=== PATIENT | male | born 1970 | race Caucasian/White ===

== ENCOUNTER → 2016-03-09 | Outpatient (CLI) | payer BC, OTHER ==
[~2016-03-09] MED LIST: ATOR-22 PO; PRLSR20 PO
[2016-03-09 12:51] LABS: ALB/GLOB RATIO 1.1 (0.9-2); ALKALINE PHOSPHATASE 58 U/L (45-117); ALT/SGPT 49 U/L (12-78); AST/SGOT 29 U/L (15-37); BLOOD UREA NITROGEN 10 mg/dl (7-18); BUN/CREATININE RATIO 9.2 (10-20); CALCIUM 9.8 mg/dl (8.5-10.1); CARBON DIOXIDE 26 mmol/L (21-32); CHLORIDE 101 mmol/L (98-107); GLUCOSE 96 mg/dl (70-99); HDL CHOLESTEROL 62 mg/dl; POTASSIUM 3.8 mmol/L (3.5-5.1); SODIUM 138 mmol/L (136-145)
[2016-03-09 12:58] LABS: CHOLESTEROL 187 mg/dl (0-200); LDL CHOLESTEROL CALCULATED 84 mg/dl; PROSTATE SPECIFIC ANTIGEN 0.699 ng/ml (0.000-4.000); TRIGLYCERIDES 205 mg/dl (0-150); VERY LOW DENSITY LIPOPROT CALC 41 mg/dl
--- NOTE | 2016-03-14 09:54 | CODING QUERY MEDICAL NECESSITY ---
SUPPORTING DIAGNOSIS NEEDED A supporting diagnosis is required for the test/procedure performed on this patient in order for us to be reimbursed by the patient's insurance. Please provide a supporting diagnosis for the following test/procedure listed below next to the test name along with your signature. *If there is no additional diagnosis for this patient that would support the following test/procedure please document that below next to the test/procedure. Test(s)/Procedure(s) that require a supporting diagnosis: * PSA DIAGNOSIS: * DOS: 03/09/16 Provider Signature: Date: Thank you Gerda Chavez Personally Information Management Once completed, please kindly fax back to [phone] For questions please call [phone]
== END | disposition home or self-care (01) ==
LOC: C.LABBFT 07:38
PROVIDERS: ATTEND Neuromusculoskeletal Medicine & OMM
DX: Z00.00 Encounter for general adult medical examination without abnormal findings (principal); Z86.39 Personal history of other endocrine, nutritional and metabolic disease

== ENCOUNTER → 2016-06-14 | Outpatient (CLI) | payer BC ==
[2016-06-14 12:20] LABS: CHOLESTEROL/HDL RATIO 3.8
[2016-06-14 12:31] LABS: BLOOD UREA NITROGEN 14 mg/dl (7-18); BUN/CREATININE RATIO 13.1 (10-20); CARBON DIOXIDE 28 mmol/L (21-32); CHLORIDE 101 mmol/L (98-107); GLUCOSE 104 mg/dl (70-99); MAGNESIUM 2.1 mg/dl (1.8-2.4); POTASSIUM 3.5 mmol/L (3.5-5.1); SODIUM 138 mmol/L (136-145)
== END | disposition home or self-care (01) ==
LOC: C.LABBFT 07:36
PROVIDERS: ATTEND Neuromusculoskeletal Medicine & OMM
DX: E87.6 Hypokalemia (principal)

== ENCOUNTER → 2017-01-09 | Outpatient (CLI) | payer BC ==
--- NOTE | 2017-01-09 15:54 | DIAGNOSTIC IMAGING REPORT ---
CHEST 2 VIEWS ROUTINE CLINICAL HISTORY: Lump of rib. COMPARISON STUDY: Chest radiograph September 23, 2013. FINDINGS: A BB was placed on the skin at site of palpable abnormality. This overlies the anterolateral left 11th rib. No osseous abnormality is the rib is identified by radiography. Lungs are clear. Pulmonary vascularity is normal. Cardiomediastinal silhouette is normal. IMPRESSION: 1. No acute cardiopulmonary findings. 2. No abnormality of the left 11th rib to correspond to the palpable abnormality. Electronically signed by: Jose J Hernandez M.D. 01/09/2017 3:53 PM Dictated Date/Time: 01/09/2017 3:51 PM
== END | disposition home or self-care (01) ==
LOC: C.RAD1850 15:32
PROVIDERS: ATTEND Neuromusculoskeletal Medicine & OMM
DX: M89.9 Disorder of bone, unspecified (principal)

== ENCOUNTER → 2017-02-03 | Outpatient (CLI) | payer BC ==
--- NOTE | 2017-02-03 11:54 | DIAGNOSTIC IMAGING REPORT ---
CHEST LIMITED (US) CLINICAL HISTORY: LUMP OF RIB, RIB PAIN ON LEFT SIDE COMPARISON STUDY: Chest x-ray 01/09/2017. FINDINGS: The patient describes a questioned palpable abnormality and pain within the left rib 10 and 11 rib costochondral junctions. No sonographic abnormality identified location. No fluid collections or masses. IMPRESSION: No sonographic abnormality identified in the region of the left 10th or 11th rib costochondral junctions. Electronically signed by: Josh Dominique M.D. 02/03/2017 11:53 AM Dictated Date/Time: 02/03/2017 11:51 AM
== END | disposition home or self-care (01) ==
LOC: C.ULTR 11:21
PROVIDERS: ATTEND Neuromusculoskeletal Medicine & OMM
DX: M89.9 Disorder of bone, unspecified (principal); R07.81 Pleurodynia

== ENCOUNTER 2024-02-05 20:09 | Inpatient (IN) ==
[2024-02-05 21:12] LABS: Basophils # (auto) 0.03 K/uL (0.00-0.20); Basophils % (auto) 0.3 %; Eosinophils # (auto) 0.02 K/uL (0.00-0.50); Eosinophils % (auto) 0.2 %; Hematocrit (blood only) 40.8 % (42.0-52.0); Immature Granulocytes # (auto) 0.02 K/uL (0.01-0.20); Immature Granulocytes % (auto) 0.2 %; Lymphocytes % (auto) 18.3 %; Mean Corpuscular Hemoglobin 31.3 pg (25.0-34.0); Mean Corpuscular Hgb Conc 36.8 g/dL (32.0-36.0); Mean Platelet Volume 8.8 fL (9.4-12.4); Monocytes # (auto) 1.18 K/uL (0.11-0.59); Monocytes % (auto) 10.8 %; Neutrophils # (auto) 7.67 K/uL (1.40-6.50); Neutrophils % (auto) 70.2 %; Platelet Count 284 K/uL (130-400); RDW Coefficient of Variation 12.1 % (11.5-14.5); RDW Standard Deviation 37.6 fL (36.4-46.3); White Blood Count 10.92 K/ul (4.8-10.8)
[2024-02-05 21:15] LABS: Appearance Urine Clear (Clear); Bacteria Urine Automated None Seen (None Seen); Bilirubin Urine Negative (Negative); Blood Urine 1+ (Negative); Cast Urine Automated 0-2 /lpf (0-2); Color Urine Yellow; Epithelial Cell Urine Auto 0-2 /hpf (0-2); Glucose Urine UA Negative (Negative); Ketones Urine Negative (Negative); Leukocyte Esterase Urine Negative (Negative); Nitrite Urine Negative (Negative); Protein Urine Trace (Negative); RBC Urine Automated 0-2 /hpf (0-2); Specific Gravity Urine 1.006 (1.000-1.030); Urobilinogen Urine Negative (Negative); WBC Urine Automated 0-5 /hpf (0-5); pH Urine 6.5 (4.5-7.5)
[2024-02-05 21:31] LABS: Albumin Globulin Ratio 1.4 (0.9-2); Albumin Level 4.7 gm/dl (3.4-5.0); BUN Creatinine Ratio 10.5 (10-20); Bilirubin,Total 1.5 mg/dl (0.2-1.0); Calcium 10.2 mg/dl (8.6-10.3); Creatinine Clr Calc Pharmacy 161.1 ml/min; Globulin 3.4 gm/dl (2.5-4.0); Potassium 3.2 mmol/L (3.5-5.1); Total Protein 8.1 gm/dl (6.0-8.3)
[2024-02-05 21:37] LABS: Troponin I High Sensitivity 4.5 pg/ml (0-20)
[2024-02-05] MEDS: OPTIRAY 320 100ml IV ONE (21:52)
[2024-02-05] MEDS: SODIUM CHLORIDE 0.9% 1,000 ML IV ONE (23:09)
[2024-02-05] MEDS: KETOROLAC 30 MG/ML VIAL IV STA (23:09)
[2024-02-05] MEDS: ONDANSETRON INJ 2 MG/ML 2 ML VIAL IV STA (23:11)
--- NOTE | 2024-02-05 23:44 | Emergency Department Note ---
Impression & Plan Gastric ulcer, GI bleed, Abdominal pain, epigastric, Alcohol use disorder ED Provider Note CHIEF COMPLAINT: Abdominal pain HISTORY OF PRESENT ILLNESS: This 53-year-old male patient presents to the emergency department via private vehicle for evaluation of abdominal pain. Patient states symptoms started yesterday shortly after eating [place] food. He states that over the past 36 hours, the pain has been worsening. He states that it has now spread into his back. Patient describes a sharp pain in the upper abdomen. There has been nausea and vomiting. Patient denies any diarrhea or constipation. He denies history of similar symptoms. He does admit to drinking 5-6 beers per night for quite some time. He states he also uses to tobacco regularly. The patient has not been able to tolerate p.o. foods throughout the day today due to the upset stomach. He states that he has been tolerating sips of water throughout the day. Patient denies any urinary symptoms. No dysuria, urinary frequency, urinary hesitancy, hematuria. History provided by: Patient and visitor REVIEW OF SYSTEMS: A 10 system review of systems was performed with positives and pertinent negatives listed in the history of present illness. All other systems were reviewed and are negative. ALLERGIES: NKDA PHYSICAL EXAM: VITALS: Vitals are noted on the nurse's note and reviewed by myself. GENERAL: This is a 53-year-old male, in no acute distress, nondiaphoretic, well- developed well-nourished. SKIN: The skin was without rashes, erythema, edema, or bruising. There is no tenting of the skin. Capillary refill less than 2 seconds. HEAD: Normocephalic atraumatic. EYES: Conjunctivae without injection, sclerae without icterus. NECK: Supple without nuchal rigidity. No lymphadenopathy. Cervical spine is nontender. No JVD. HEART: Regular rate and rhythm without murmurs gallops or rubs. LUNGS: Clear to auscultation bilaterally without wheezes, rales or rhonchi. No retractions or accessory muscle use. ABDOMEN: Positive bowel sounds x 4. Epigastric and right upper quadrant tenderness to palpation. Abdomen otherwise soft, nontender, without masses or organomegaly. Ghosh sign negative. No guarding or rebound tenderness. MUSCULOSKELETAL: No muscle atrophy, erythema, or edema noted. Full range of motion without joint tenderness in all extremities. No tenderness to palpation. Normal gait. Strength 5/5 throughout. NEURO: Patient was alert and oriented to person place and time. No focal neurological deficits. An order was placed for continuous geomagnetician. The monitor showed a normal sinus rhythm at a ventricular rate of 83 bpm, per my interpretation. Imaging as interpreted by myself and the radiologist revealed concern for gastric ulcer and duodenitis with possible GI bleed, with radiologist interpretation as below. I agree with the radiologist's findings as based upon my independent interpretation. EMERGENCY DEPARTMENT COURSE: The patient was seen and evaluated as above. Due to high-volume, high acuity in the emergency department, initial orders were placed by triage nursing staff. IV access had been obtained, labs were drawn. Labs reviewed. Per my interpretation, there was mild leukocytosis of 10.92. No concerning anemia or thrombocytopenia. Renal, hepatic function without significant abnormality. Patient is hyponatremic with a sodium of 128. Potassium is 3.2. Magnesium slightly low at 1.5. Lipase is elevated at 500. Urinalysis positive for 1+ blood. Urine drug screen was negative. Alcohol <10. I did evaluate the patient at this time. Patient was medicated with IV fluids, Zofran, and Toradol. CT imaging was completed and reviewed by myself radiologist as noted. CT scan was concerning for gastric ulcer with duodenitis and possible GI bleed. Please see radiology report. Patient medicated with additional IV fluids. He was medicated with Protonix bolus and drip. Given the CT findings concerning for gastric ulcer, possible GI bleed, duodenitis, and possible pancreatitis, I do feel the patient would benefit from inpatient management. The patient was agreeable. I discussed the case with Dr. Hayden, [facility] hospitalist. He did agree to evaluate the patient for admission. Please see his dictation regarding ongoing management of this patient. Case was discussed with the attending physician. This visit is during a period of high volume and high acuity in the emergency department. I attest that I have personally reviewed the patient medication list. I attest that I have reviewed the patient's blood pressure and it was found to be normal GCS: 15 In the evaluation and treatment of this patient the following differential diagnoses were entertained: appendicitis, diverticulitis, obstruction, inflammatory bowel disease, renal colic, PUD, biliary pathology, pancreatitis, mesenteric ischemia, aortic pathology, infections, genitourinary, UTI, perforated viscus, as well as others were entertained. The chart was completed utilizing [employer] Speech voice recognition software. Grammatical errors, random word insertions, pronoun errors, and incomplete sentences are an occasional consequence of this system due to software limitations, ambient noise, and hardware issues. Any formal questions or concerns about the content, text, or information contained within the body of this dictation should be directly addressed to the provider for clarification. Past Med/Surg History Problem List (Updated 02/06/24 @ 06:16 by Tila Garcia PA-C) Alcohol use disorder (Acute) Abdominal pain, epigastric (Acute) GI bleed (Acute) Gastric ulcer (Acute) Unrefreshed by sleep HTN (hypertension) (Chronic) Bilateral tinnitus Sensorineural hearing loss (SNHL) of both ears Smokeless tobacco use GERD without esophagitis (Acute) Medical History History of colon polyps Hyponatremia Hearing loss getting hearing aides soon Acid reflux History of hypokalemia Hyperlipidemia Surgical History History of colonoscopy S/P hernia repair Family History Father Colorectal cancer Brother Colorectal cancer Uncle Myocardial infarction Denies family history of Ovarian cancer Prostate cancer Breast cancer Social History Smoking Status: Never smoker Tobacco Type: Smokeless Tobacco (Dip or Chew) Age Started Using Tobacco: 16; packs per day: 1; Cigarettes Per Day: less than one can per day; Second Hand Exposure: No; Do You Dip or Chew Tobacco: No; Tobacco Cessation Education Requested by Patient: No Hx Alcohol Use: Yes Alcohol type: beer Alcohol Intake Frequency: 4 or More x per/Week Hx Substance Use: No Preferred Language: Danish Communication Ability: Effective Visual Impairment: No Limitations Hearing Ability: Normal Curber Required: No Beliefs That Will Affect Care: None marital status: Current Living Situation: Spouse current occupational status: employed current occupation: [employer]; [employer] Other Information That Helps Us Care for You: No Feels Safe at Home: Yes Safety Concerns: Feels Safe At This Time Childhood Exposure to Second-Hand Smoke: No Diet: regular caffeine: Yes Dental Care, Regularly: Yes Physical Activity Frequency: Daily Seatbelt Use: always Sunscreen Use: Yes Assistive Devices: None Allergies Allergies Allergy/AdvReac Type Severity Reaction Status Date / Time No Known Allergies Allergy Verified 11/20/23 08:48 Home Meds Home Medications Medication Instructions Recorded Confirmed atenolol 25 mg tablet 25 mg PO QPM 05/31/23 02/06/24 omeprazole 20 mg capsule,delayed 20 mg PO QAM 05/31/23 02/06/24 release aspirin 81 mg tablet,delayed 81 mg PO QAM 02/06/24 02/06/24 release doxycycline monohydrate 100 mg 100 mg PO BID 02/06/24 02/06/24 tablet Previous Rx's Medication Instructions Recorded chlorthalidone 25 mg tablet 25 mg PO QAM #90 tabs 03/01/23 amlodipine 10 mg-benazepril 20 mg 1 cap PO QAM #90 caps 06/23/23 capsule atorvastatin 20 mg tablet 20 mg PO QPM #90 tabs 07/18/23 potassium chloride 20 mEq 20 meq PO BID #180 tabs 01/08/24 tablet,extended release Results & Data (ED) Vital Signs Vital Signs - 24 hr 02/05/24 20:28 02/05/24 22:47 02/05/24 22:48 Temperature 36.6 C Temperature Source Oral Pulse Rate 102 H Pulse Rate [Left Apical] 102 H Pulse Rate from SpO2 Sensor Respiratory Rate 18 17 Respiratory Effort / Characteristics Non-Labored Spontaneous Non-Labored Spontaneous Respiratory Depth Normal Normal Respiratory Pattern Regular Regular Blood Pressure 185/105 H 181/117 H Blood Pressure [Right Arm] 181/117 H Blood Pressure Mean 131 139 Blood Pressure Mean [Right Arm] 138 Blood Pressure Position Sitting Pulse Oximetry 97 97 Oxygen Delivery Method Room Air Room Air Sepsis Recent Fever Within 48 Hours No Sepsis New/Unexplained Change in Mental Status N/A Sepsis Action Taken by Nursing No Action Required 02/05/24 22:49 02/05/24 22:51 02/05/24 23:00 Temperature Temperature Source Pulse Rate 101 H 91 H 88 Pulse Rate [Left Apical] Pulse Rate from SpO2 Sensor 86 82 Respiratory Rate 12 10 L Respiratory Effort / Characteristics Respiratory Depth Respiratory Pattern Blood Pressure 170/86 H Blood Pressure [Right Arm] Blood Pressure Mean 114 Blood Pressure Mean [Right Arm] Blood Pressure Position Pulse Oximetry 96 95 Oxygen Delivery Method Room Air Room Air Sepsis Recent Fever Within 48 Hours Sepsis New/Unexplained Change in Mental Status Sepsis Action Taken by Nursing 02/05/24 23:27 02/05/24 23:30 02/06/24 00:06 Temperature Temperature Source Pulse Rate 97 H 87 Pulse Rate [Left Apical] Pulse Rate from SpO2 Sensor 94 H 88 Respiratory Rate 17 13 Respiratory Effort / Characteristics Respiratory Depth Respiratory Pattern Blood Pressure 166/92 H Blood Pressure [Right Arm] Blood Pressure Mean 105 Blood Pressure Mean [Right Arm] Blood Pressure Position Pulse Oximetry 97 97 Oxygen Delivery Method Room Air Room Air Sepsis Recent Fever Within 48 Hours Sepsis New/Unexplained Change in Mental Status Sepsis Action Taken by Nursing 02/06/24 00:30 02/06/24 00:33 02/06/24 01:00 Temperature Temperature Source Pulse Rate 84 Pulse Rate [Left Apical] Pulse Rate from SpO2 Sensor 84 Respiratory Rate 16 Respiratory Effort / Characteristics Respiratory Depth Respiratory Pattern Blood Pressure 158/85 H 150/91 H Blood Pressure [Right Arm] Blood Pressure Mean 103 104 Blood Pressure Mean [Right Arm] Blood Pressure Position Pulse Oximetry 95 Oxygen Delivery Method Room Air Sepsis Recent Fever Within 48 Hours Sepsis New/Unexplained Change in Mental Status Sepsis Action Taken by Nursing 02/06/24 01:06 02/06/24 02:00 02/06/24 02:03 Temperature Temperature Source Pulse Rate 80 84 Pulse Rate [Left Apical] Pulse Rate from SpO2 Sensor 80 84 Respiratory Rate 14 18 Respiratory Effort / Characteristics Respiratory Depth Respiratory Pattern Blood Pressure 139/85 Blood Pressure [Right Arm] Blood Pressure Mean 101 Blood Pressure Mean [Right Arm] Blood Pressure Position Pulse Oximetry 93 95 Oxygen Delivery Method Room Air Room Air Sepsis Recent Fever Within 48 Hours Sepsis New/Unexplained Change in Mental Status Sepsis Action Taken by Nursing Laboratory Data 02/06/24 04:54 02/05/24 20:57 Lab Results 02/05/24 Range/Units 20:57 WBC 10.92 H (4.8-10.8) K/ul RBC 4.80 (4.70-6.10) M/uL Hgb 15.0 (14.0-18.0) g/dl Hct 40.8 L (42.0-52.0) % MCV 85.0 (80.0-100.0) fL MCH 31.3 (25.0-34.0) pg MCHC 36.8 H (32.0-36.0) g/dL RDW Std Deviation 37.6 (36.4-46.3) fL RDW Coeff of Robert 12.1 (11.5-14.5) % Plt Count 284 (130-400) K/uL MPV 8.8 L (9.4-12.4) fL Immature Gran % (Auto) 0.2 % Neut % (Auto) 70.2 % Lymph % (Auto) 18.3 % [place] % (Auto) 10.8 % Eos % (Auto) 0.2 % Baso % (Auto) 0.3 % Neut # (Auto) 7.67 H (1.40-6.50) K/uL Lymph # (Auto) 2.00 (1.20-3.40) K/uL [place] # (Auto) 1.18 H (0.11-0.59) K/uL Eos # (Auto) 0.02 (0.00-0.50) K/uL Baso # (Auto) 0.03 (0.00-0.20) K/uL Immature Gran # (Auto) 0.02 (0.01-0.20) K/uL PT 11.0 (9.0-12.0) Seconds INR 1.0 (0.9-1.1) APTT 30 (21-31) Seconds PTT Ratio 1.1 Sodium 128 L (136-145) mmol/L Potassium 3.2 L (3.5-5.1) mmol/L Chloride 90 L (98-107) mmol/L Carbon Dioxide 28 (21-32) mmol/L Anion Gap 10 (3-11) BUN 8 (6-23) mg/dl Creatinine 0.76 (0.6-1.4) mg/dl Est Cr Clr Drug Dosing 161.1 ml/min eGFR 108.15 BUN/Creatinine Ratio 10.5 (10-20) Glucose 98 (70-99(Fasting)) mg/dl Lactate 1.8 (0.4-2.0) mmol/L Calcium 10.2 (8.6-10.3) mg/dl Magnesium 1.5 L (1.7-2.4) mg/dl Total Bilirubin 1.5 H (0.2-1.0) mg/dl AST 54 H (13-39) U/L ALT 43 (7-52) U/L Alkaline Phosphatase 68 (34-104) U/L Troponin I High Sens 4.5 (0-20) pg/ml Total Protein 8.1 (6.0-8.3) gm/dl Albumin 4.7 (3.4-5.0) gm/dl Globulin 3.4 (2.5-4.0) gm/dl Albumin/Globulin Ratio 1.4 (0.9-2) Lipase 500 H (11-82) U/L Urine Color Yellow Urine Appearance Clear (Clear) Urine pH 6.5 (4.5-7.5) Ur Specific [place] 1.006 (1.000-1.030) Urine Protein Trace H (Negative) Urine Glucose (UA) Negative (Negative) Urine Ketones Negative (Negative) Urine Blood 1+ H (Negative) Urine Nitrite Negative (Negative) Urine Bilirubin Negative (Negative) Urine Urobilinogen Negative (Negative) Ur Leukocyte Esterase Negative (Negative) Urine WBC (Auto) 0-5 (0-5) /hpf Urine RBC (Auto) 0-2 (0-2) /hpf U Hyaline Cast (Auto) 0-2 (0-2) /lpf U Epithel Cells (Auto) 0-2 (0-2) /hpf Urine Bacteria (Auto) None Seen (None Seen) Urine Opiates Screen Neg (Neg) Ur Methadone, Qual Neg (Neg) Urine Fentanyl Screen Neg (Neg) Urine Barbiturates Neg (Neg) Ur Phencyclidine (PCP) Neg (Neg) U Amphetamin/Meth Scrn Neg (Neg) MDMA (Ecstasy) Screen Neg (Neg) U Benzodiazepines Scrn Neg (Neg) Ur Cocaine Metabolite Neg (Neg) U Marijuana (THC) Screen Neg (Neg) Administered Medications Pantoprazole Sodium 40 mg/ (Dextrose) 100 mls @ 20 mls/hr IV Q5H [facility] Stop: 03/07/24 00:29 Last Admin: 02/06/24 05:16 Dose: 8 mg/hr, 20 mls/hr Documented By: Infusion: 02/06/24 05:15 Dose: Infused Documented By: Admin: 02/06/24 00:50 Dose: 8 mg/hr, 20 mls/hr Documented By: KELL Octreotide Acetate 500 mcg/ (Sodium Chloride) 100.5 mls @ 10.05 mls/hr IV .Q10H [facility] Stop: 03/07/24 01:59 Last Admin: 02/06/24 02:24 Dose: 50 mcg/hr, 10.1 mls/hr Documented By: KELL Potassium Chloride/Sodium Chloride (Normal Saline W/20 Meq Kcl) 20 meq in 1,000 mls @ 80 mls/hr IV .[id number] [facility] Stop: 02/07/24 02:59 Last Admin: 02/06/24 03:21 Dose: 80 mls/hr Documented By: KELL Ceftriaxone Sodium (Rocephin) 2,000 mg in 50 mls @ 100 mls/hr IV Q24H [facility] Stop: 02/16/24 01:59 Last Infusion: 02/06/24 03:21 Dose: Infused Documented By: Admin: 02/06/24 03:04 Dose: 100 mls/hr Documented By: KELL Lorazepam (Lorazepam 2 Mg/1 Ml Vial) 1 mg IV UD PRN; Protocol PRN Reason: EtOH Withdrawal AWSS Score 6,7 Stop: 03/07/24 01:57 Last Admin: 02/06/24 03:20 Dose: 1 mg Documented By: KELL Lorazepam (Lorazepam 2 Mg/1 Ml Vial) 2 mg IV UD PRN; Protocol PRN Reason: EtOH Withdrawal AWSS Score 8,9 Stop: 03/07/24 01:57 Last Admin: 02/06/24 02:24 Dose: 2 mg Documented By: KELL Discontinued Medications Sodium Chloride (Nss) 1,000 mls @ 999 mls/hr IV .Q1H1M ONE Stop: 02/05/24 23:57 Last Infusion: 02/06/24 00:15 Dose: Infused Documented By: Admin: 02/05/24 23:09 Dose: 999 mls/hr Documented By: KELL Sodium Chloride (Nss) 1,000 mls @ 999 mls/hr IV .Q1H1M ONE Stop: 02/06/24 01:09 Last Infusion: 02/06/24 02:00 Dose: Infused Documented By: Admin: 02/06/24 00:27 Dose: 999 mls/hr Documented By: KELL Pantoprazole Sodium 80 mg/ (Dextrose) 120 mls @ 480 mls/hr IV NOW ONE Stop: 02/06/24 00:23 Last Infusion: 02/06/24 00:50 Dose: Infused Documented By: Admin: 02/06/24 00:28 Dose: 480 mls/hr Documented By: KELL Desmopressin Acetate 45 mcg/ (Sodium Chloride) 61.25 mls @ 100 mls/hr IV ONE ONE Stop: 02/06/24 02:36 Last Infusion: 02/06/24 03:01 Dose: Infused Documented By: Admin: 02/06/24 02:27 Dose: 100 mls/hr Documented By: KELL Octreotide Acetate 50 mcg/ (Syringe) 10 mls @ 3 mls/min IV ONE STA Stop: 02/06/24 02:02 Last Admin: 02/06/24 02:26 Dose: 3 mls/min Documented By: KELL Ioversol (Optiray 320 100ml) 93 ml IV ONCE ONE Stop: 02/05/24 21:51 Last Admin: 02/05/24 21:52 Dose: 93 ml Documented By: OLLIE Ketorolac Tromethamine (Ketorolac 30 Mg/Ml Vial) 30 mg IV NOW STA Stop: 02/05/24 22:58 Last Admin: 02/05/24 23:09 Dose: 30 mg Documented By: KELL Ondansetron HCl (Ondansetron Inj 2 Mg/Ml 2 Ml Vial) 4 mg IV NOW STA Stop: 02/05/24 22:58 Last Admin: 02/05/24 23:11 Dose: 4 mg Documented By: KELL Pantoprazole Sodium (Pantoprazole Bolus/Drip) 1 each IV NOW STA Stop: 02/06/24 00:10 Last Admin: 02/06/24 00:38 Dose: Not Given Documented By: KELL Imaging Data Radiologist's Impression: Abdomen/Pelvis CT 02/05/24 20:47 CR Exam(s): CT ABDOMEN + PELVIS With Contrast IV Amt: 93 ml opti 320 EXAM: CT Abdomen and Pelvis With Intravenous Contrast CLINICAL HISTORY: Epigastric Pain. TECHNIQUE: Axial computed tomography images of the abdomen and pelvis with intravenous contrast. CTDI is 28 mGy and DLP is 1442 mGy-cm. Automated exposure control was utilized for the study. A dose lowering technique was utilized adhering to the principles of ALARA. CONTRAST: Patient received 93 ml opti 320 of IV contrast COMPARISON: No relevant prior studies available. FINDINGS: Lung bases: Unremarkable. No mass. No consolidation. ABDOMEN: Liver: Unremarkable. No mass. Gallbladder and bile ducts: Unremarkable. No calcified stones. No ductal dilation. Pancreas: See below. Spleen: Unremarkable. No splenomegaly. Adrenals: Unremarkable. No mass. Kidneys and ureters: Unremarkable. No solid mass. No hydronephrosis. Stomach and bowel: Hyperdense material of the proximal duodenum could relate to GI bleed or more likely ingested hyperdense material. No obstruction. No mucosal thickening. PELVIS: Appendix: No findings to suggest acute appendicitis. Bladder: Unremarkable. No mass. Reproductive: Unremarkable as visualized. ABDOMEN and PELVIS: Intraperitoneal space: There is thickening of the wall of the duodenum with surrounding free fluid and a presumed ulcer of the mid first portion of the duodenum. This is best seen on coronal images 42 through 48. The free fluid surrounding the uncinate process is felt to likely be secondary to the duodenitis rather than acute pancreatitis. No free air. Bones/joints: There are degenerative changes of the spine. No acute fracture. No dislocation. Soft tissues: Small bilateral fat-containing inguinal hernias. Vasculature: Mild atherosclerosis. No abdominal aortic aneurysm. Lymph nodes: Unremarkable. No enlarged lymph nodes. IMPRESSION: 1. There is thickening of the wall of the duodenum with surrounding free fluid and a presumed ulcer of the mid first portion of the duodenum. This is best seen on coronal images 42 through 48. No evidence of perforation. 2. The free fluid surrounding the uncinate process is felt to likely be secondary to the duodenitis rather than acute pancreatitis. 3. Hyperdense material of the proximal duodenum could relate to GI bleed or more likely ingested hyperdense material. Communications: Verify Receipt Electronically signed by: Jess Barrios MD 02/05/24 23:44 PM Discharge Plan Visit Data Chief Complaint: Abdominal Pain Stated Complaint: SEVERE ABD PAIN, NAUSEA, ED Provider: Marilyn Campos ED Midlevel Provider: Tila Garcia Discharge Problem: Gastric ulcer, GI bleed, Abdominal pain, epigastric, Alcohol use disorder Patient Disposition: Admitted As Inpatient Discharge Instructions Interventions: ED Discharge Assessment Last Done: 02/06/24 03:15
[2024-02-06] MEDS: SODIUM CHLORIDE 0.9% 1,000 ML IV ONE (00:27)
[2024-02-06] MEDS: PANTOprazole 80 MG in DEXTROSE 5% 100 ML IV ONE (00:28)
[2024-02-06] MEDS: PANTOPRAZOLE BOLUS/DRIP IV STA (00:38)
[2024-02-06] MEDS: PANTOprazole 40 MG in DEXTROSE 5% MINI-B 100 ML IV SCH (00:50)
[2024-02-06] MEDS ORDERED: STAT IV/IM STA (01:47)
[2024-02-06] MEDS ORDERED: Ativan IV Alcohol Withdrawal--Active Protocol IV PRN (01:58)
[2024-02-06] MEDS ORDERED: LORazepam 2 MG/1 ML VIAL IV PRN (01:58)
--- NOTE | 2024-02-06 02:04 | History & Physical Report ---
Date of Service February 06, 2024 Assessment & Plan (1) Alcohol use disorder: (2) Gastric ulcer: (3) GI bleed: (4) Smokeless tobacco use: Plan The patient is a 53-year-old male with a past medical history including hypertension, SNHL bilaterally, smokeless tobacco use, GERD without esophagitis, hypertension, hyperlipidemia, and daily alcohol use. He presents to the emergency department with symptoms as noted above. He does report a change in his stool pattern during this time, noting that his stools are venkat in color. #Gastric ulcer with GI bleed- CT scan abdomen pelvis notes thickened duodenum wall with surrounding free fluid. Presumed ulcer in the mid duodenum NPO Aggravating factors including aspirin, doxycycline, potassium chloride, smokeless tobacco use, alcohol use Continue Protonix bolus/drip begun in the ED Start octreotide bolus/drip Give DDAVP 45 mcg IV x 1 NSS + KCl 20 mEq at 80 mL/h x 2 L Ceftriaxone 2 g IV every 24 hours H&H every 6 hours Consult gastroenterology #Electrolyte disturbances- For potassium 3.2 IV fluids as noted above Magnesium 1.5, give magnesium sulfate 2 g IV Repeat laboratories in a.m. #Pancreatitis- Lipase 500 Follow serially Differential including alcoholic/gallstone/associated with duodenitis #Alcohol use disorder- Placed on AWSS protocol with IV Ativan Thiamine 100 mg IV daily Folic acid 1 mg IV daily Alcohol level less than 10 Urine drug screen negative History of Present Illness Chief Complaint: The patient presents to the emergency department via private vehicle for evaluation of abdominal pain that began yesterday after eating Mong[place]ian food and has been gradually worsening since that time. He reports having nausea and vomiting pain is not on the and has a sharp pain in his upper abdomen. He reports that he has not been able to tolerate food or liquids for the entire day today. Primary Care Provider: Harjit Frias, The patient is a 53-year-old male with a past medical history including hypertension, SNHL bilaterally, smokeless tobacco use, GERD without esophagitis, hypertension, hyperlipidemia, and daily alcohol use. He presents to the em ergency department with symptoms as noted above. He does report a change in his stool pattern during this time, noting that his stools are venkat in color. Allergies Allergy/AdvReac Type Severity Reaction Status Date / Time No Known Allergies Allergy Verified 11/20/23 08:48 Home Medications Medication Instructions Recorded Confirmed Type chlorthalidone 25 mg tablet 25 mg PO QAM #90 tabs 03/01/23 02/06/24 Rx atenolol 25 mg tablet 25 mg PO QPM 05/31/23 02/06/24 History omeprazole 20 mg capsule,delayed 20 mg PO QAM 05/31/23 02/06/24 History release amlodipine 10 mg-benazepril 20 mg 1 cap PO QAM #90 caps 06/23/23 02/06/24 Rx capsule atorvastatin 20 mg tablet 20 mg PO QPM #90 tabs 07/18/23 02/06/24 Rx potassium chloride 20 mEq 20 meq PO BID #180 tabs 01/08/24 02/06/24 Rx tablet,extended release aspirin 81 mg tablet,delayed 81 mg PO QAM 02/06/24 02/06/24 History release doxycycline monohydrate 100 mg 100 mg PO BID 02/06/24 02/06/24 History tablet Past Med/Surg History Problem List (Updated 02/06/24 @ 06:16 by Tila Garcia PA-C) Alcohol use disorder (Acute) Abdominal pain, epigastric (Acute) GI bleed (Acute) Gastric ulcer (Acute) Unrefreshed by sleep HTN (hypertension) (Chronic) Bilateral tinnitus Sensorineural hearing loss (SNHL) of both ears Smokeless tobacco use GERD without esophagitis (Acute) Medical History History of colon polyps Hyponatremia Hearing loss getting hearing aides soon Acid reflux History of hypokalemia Hyperlipidemia Surgical History History of colonoscopy S/P hernia repair Family History Father Colorectal cancer Brother Colorectal cancer Uncle Myocardial infarction Denies family history of Ovarian cancer Prostate cancer Breast cancer Social History Smoking Status: Never smoker Tobacco Type: Smokeless Tobacco (Dip or Chew) Age Started Using Tobacco: 16; packs per day: 1; Cigarettes Per Day: less than one can per day; Second Hand Exposure: No; Do You Dip or Chew Tobacco: No; Tobacco Cessation Education Requested by Patient: No Hx Alcohol Use: Yes Alcohol type: beer Alcohol Intake Frequency: 4 or More x per/Week Hx Substance Use: No Preferred Language: [place] Citizen Communication Ability: Effective Visual Impairment: No Limitations Hearing Ability: Normal Interactive Media Project Manager Required: No Beliefs That Will Affect Care: None marital status: Current Living Situation: Spouse current occupational status: employed current occupation: [employer]; [employer] Other Information That Helps Us Care for You: No Feels Safe at Home: Yes Safety Concerns: Feels Safe At This Time Childhood Exposure to Second-Hand Smoke: No Diet: regular caffeine: Yes Dental Care, Regularly: Yes Physical Activity Frequency: Daily Seatbelt Use: always Sunscreen Use: Yes Assistive Devices: None Review of Systems Review of Systems: The patient denies chest pain, palpitations, shortness of breath, dyspnea on exertion, cough, lower extremity swelling, sore throat, fevers, chills, sweats, blood in urine, dysuria, urinary frequency or urgency, lightheadedness, dizziness, headache, memory loss, loss of consciousness, imbalance, focal or generalized weakness, numbness or tingling in arms or legs, generalized arthralgias or myalgias, neck pain, or night sweats. The review of systems is otherwise negative other than for that already noted above, and at least 10 systems have been reviewed. Physical Exam Physical Exam: The patient is awake, alert and oriented 3, well developed and well nourished, normocephalic and atraumatic, lying in bed and in no acute distress. HEENT--PERRL, EOMI, mucous membranes and oropharynx mildly dry. Neck--supple. No JVD. No bruits. Thyroid normal, trachea midline, no adenopathy. Heart--normal S1 and S2. No murmurs, rubs or gallops. Lungs--clear bilaterally, no respiratory distress, no accessory muscle use. Abdomen--normal bowel sounds and soft. Nontender. Nondistended, no hernias or masses, no organomegaly. Extremities--no cyanosis or clubbing. No edema. Dermatologic--normal skin turgor, normal color, no abnormal lymph nodes, no rash. Neurologic--cranial nerves II through XII grossly intact. Rheumatologic--normal range of motion. Psychiatric--normal affect. Results & Data Results & Data Vital Signs (Past 12 Hours) Vital Signs Temp Pulse Pulse Resp BP BP Pulse Ox 02/05/24 22:49 101 H 02/05/24 22:48 102 H 17 181/117 H 97 02/05/24 20:28 36.6 C 102 H 18 185/105 H 97 O2 Del Method 02/05/24 22:49 02/05/24 22:48 Room Air 02/05/24 20:28 Room Air Laboratory Results Laboratory Results WBC 8.13 K/ul (4.8-10.8) 02/06/24 04:54 RBC 4.32 M/uL (4.70-6.10) L 02/06/24 04:54 Hgb 13.2 g/dl (14.0-18.0) L 02/06/24 04:54 Hct 37.7 % (42.0-52.0) L 02/06/24 04:54 MCV 87.3 fL (80.0-100.0) 02/06/24 04:54 MCH 30.6 pg (25.0-34.0) 02/06/24 04:54 MCHC 35.0 g/dL (32.0-36.0) 02/06/24 04:54 RDW Std Deviation 39.3 fL (36.4-46.3) 02/06/24 04:54 RDW Coeff of Robert 12.2 % (11.5-14.5) 02/06/24 04:54 Plt Count 247 K/uL (130-400) 02/06/24 04:54 MPV 8.9 fL (9.4-12.4) L 02/06/24 04:54 Immature Gran % (Auto) 0.4 % 02/06/24 04:54 Neut % (Auto) 65.8 % 02/06/24 04:54 Lymph % (Auto) 22.1 % 02/06/24 04:54 [place] % (Auto) 10.8 % 02/06/24 04:54 Eos % (Auto) 0.7 % 02/06/24 04:54 Baso % (Auto) 0.2 % 02/06/24 04:54 Neut # (Auto) 5.34 K/uL (1.40-6.50) 02/06/24 04:54 Lymph # (Auto) 1.80 K/uL (1.20-3.40) 02/06/24 04:54 [place] # (Auto) 0.88 K/uL (0.11-0.59) H 02/06/24 04:54 Eos # (Auto) 0.06 K/uL (0.00-0.50) 02/06/24 04:54 Baso # (Auto) 0.02 K/uL (0.00-0.20) 02/06/24 04:54 Immature Gran # (Auto) 0.03 K/uL (0.01-0.20) 02/06/24 04:54 PT 11.0 Seconds (9.0-12.0) 02/05/24 20:57 INR 1.0 (0.9-1.1) 02/05/24 20:57 APTT 30 Seconds (21-31) 02/05/24 20:57 PTT Ratio 1.1 02/05/24 20:57 Sodium 128 mmol/L (136-145) L 02/05/24 20:57 Potassium 3.2 mmol/L (3.5-5.1) L 02/05/24 20:57 Chloride 90 mmol/L (98-107) L 02/05/24 20:57 Carbon Dioxide 28 mmol/L (21-32) 02/05/24 20:57 Anion Gap 10 (3-11) 02/05/24 20:57 BUN 8 mg/dl (6-23) 02/05/24 20:57 Creatinine 0.76 mg/dl (0.6-1.4) 02/05/24 20:57 Est Cr Clr Drug Dosing 161.1 ml/min 02/05/24 20:57 eGFR 108.15 02/05/24 20:57 BUN/Creatinine Ratio 10.5 (10-20) 02/05/24 20:57 Glucose 98 mg/dl (70-99(Fasting)) 02/05/24 20:57 Lactate 1.8 mmol/L (0.4-2.0) 02/05/24 20:57 Calcium 10.2 mg/dl (8.6-10.3) 02/05/24 20:57 Magnesium 1.5 mg/dl (1.7-2.4) L 02/05/24 20:57 Total Bilirubin 1.5 mg/dl (0.2-1.0) H 02/05/24 20:57 AST 54 U/L (13-39) H 02/05/24 20:57 ALT 43 U/L (7-52) 02/05/24 20:57 Alkaline Phosphatase 68 U/L (34-104) 02/05/24 20:57 Troponin I High Sens 4.5 pg/ml (0-20) 02/05/24 20:57 Total Protein 8.1 gm/dl (6.0-8.3) 02/05/24 20:57 Albumin 4.7 gm/dl (3.4-5.0) 02/05/24 20:57 Globulin 3.4 gm/dl (2.5-4.0) 02/05/24 20:57 Albumin/Globulin Ratio 1.4 (0.9-2) 02/05/24 20:57 Lipase 347 U/L (11-82) H 02/06/24 04:54 Urine Color Yellow 02/05/24 20:57 Urine Appearance Clear (Clear) 02/05/24 20:57 Urine pH 6.5 (4.5-7.5) 02/05/24 20:57 Ur Specific [place] 1.006 (1.000-1.030) 02/05/24 20:57 Urine Protein Trace (Negative) H 02/05/24 20:57 Urine Glucose (UA) Negative (Negative) 02/05/24 20:57 Urine Ketones Negative (Negative) 02/05/24 20:57 Urine Blood 1+ (Negative) H 02/05/24 20:57 Urine Nitrite Negative (Negative) 02/05/24 20:57 Urine Bilirubin Negative (Negative) 02/05/24 20:57 Urine Urobilinogen Negative (Negative) 02/05/24 20:57 Ur Leukocyte Esterase Negative (Negative) 02/05/24 20:57 Urine WBC (Auto) 0-5 /hpf (0-5) 02/05/24 20:57 Urine RBC (Auto) 0-2 /hpf (0-2) 02/05/24 20:57 U Hyaline Cast (Auto) 0-2 /lpf (0-2) 02/05/24 20:57 U Epithel Cells (Auto) 0-2 /hpf (0-2) 12/30/24 20:57 Urine Bacteria (Auto) None Seen (None Seen) 02/05/24 20:57 Urine Opiates Screen Neg (Neg) 02/05/24 20:57 Ur Methadone, Qual Neg (Neg) 02/05/24 20:57 Urine Fentanyl Screen Neg (Neg) 02/05/24 20:57 Urine Barbiturates Neg (Neg) 02/05/24 20:57 Ur Phencyclidine (PCP) Neg (Neg) 02/05/24 20:57 U Amphetamin/Meth Scrn Neg (Neg) 02/05/24 20:57 MDMA (Ecstasy) Screen Neg (Neg) 02/05/24 20:57 U Benzodiazepines Scrn Neg (Neg) 02/05/24 20:57 Ur Cocaine Metabolite Neg (Neg) 02/05/24 20:57 U Marijuana (THC) Screen Neg (Neg) 02/05/24 20:57 Ethyl Alcohol mg/dL < 10.0 mg/dl (<10.0) 02/06/24 04:54 Impressions Abdomen/Pelvis CT 02/05/24 20:47 CR Exam(s): CT ABDOMEN + PELVIS With Contrast IV Amt: 93 ml opti 320 EXAM: CT Abdomen and Pelvis With Intravenous Contrast CLINICAL HISTORY: Epigastric Pain. TECHNIQUE: Axial computed tomography images of the abdomen and pelvis with intravenous contrast. CTDI is 28 mGy and DLP is 1442 mGy-cm. Automated exposure control was utilized for the study. A dose lowering technique was utilized adhering to the principles of ALARA. CONTRAST: Patient received 93 ml opti 320 of IV contrast COMPARISON: No relevant prior studies available. FINDINGS: Lung bases: Unremarkable. No mass. No consolidation. ABDOMEN: Liver: Unremarkable. No mass. Gallbladder and bile ducts: Unremarkable. No calcified stones. No ductal dilation. Pancreas: See below. Spleen: Unremarkable. No splenomegaly. Adrenals: Unremarkable. No mass. Kidneys and ureters: Unremarkable. No solid mass. No hydronephrosis. Stomach and bowel: Hyperdense material of the proximal duodenum could relate to GI bleed or more likely ingested hyperdense material. No obstruction. No mucosal thickening. PELVIS: Appendix: No findings to suggest acute appendicitis. Bladder: Unremarkable. No mass. Reproductive: Unremarkable as visualized. ABDOMEN and PELVIS: Intraperitoneal space: There is thickening of the wall of the duodenum with surrounding free fluid and a presumed ulcer of the mid first portion of the duodenum. This is best seen on coronal images 42 through 48. The free fluid surrounding the uncinate process is felt to likely be secondary to the duodenitis rather than acute pancreatitis. No free air. Bones/joints: There are degenerative changes of the spine. No acute fracture. No dislocation. Soft tissues: Small bilateral fat-containing inguinal hernias. Vasculature: Mild atherosclerosis. No abdominal aortic aneurysm. Lymph nodes: Unremarkable. No enlarged lymph nodes. IMPRESSION: 1. There is thickening of the wall of the duodenum with surrounding free fluid and a presumed ulcer of the mid first portion of the duodenum. This is best seen on coronal images 42 through 48. No evidence of perforation. 2. The free fluid surrounding the uncinate process is felt to likely be secondary to the duodenitis rather than acute pancreatitis. 3. Hyperdense material of the proximal duodenum could relate to GI bleed or more likely ingested hyperdense material. Communications: Verify Receipt Electronically signed by: Jess Barrios MD 02/05/24 23:44 PM Code Status & VTE Plan Code Status Full code VTE Prophylaxis Plan VTE Prophylaxis will be ordered: Yes PG Care Time/CCT Total # of Minutes Spent Total Time Spent with Patient: Total time spent is greater than 50% in coordination of care (as documented) at patient's floor/unit and/or counseling patient: Coding Level of Care Code 29119 INT INP/OBS CARE 3/75MIN Diagnoses Alcohol use disorder F10.90 Gastric ulcer K25.9 GI bleed K92.2 Smokeless tobacco use Z72.0
[2024-02-06 02:20] LABS: Partial Thromboplastin Ratio 1.1; Partial Thromboplastin Time 30 Seconds (21-31)
[2024-02-06 02:24] LABS: Magnesium 1.5 mg/dl (1.7-2.4)
[2024-02-06] MEDS: LORazepam 2 MG/1 ML VIAL IV PRN ×2 (02:24→03:20)
[2024-02-06] MEDS: OCTREOTIDE ACETATE 500 MCG in SODIUM CHLORIDE 0.9% 100 ML IV SCH (02:24)
[2024-02-06] MEDS: OCTREOTIDE ACETATE 50 MCG in SYRINGE 9.5 ML IV STA (02:26)
[2024-02-06] MEDS: SODIUM CHLORIDE 0.9% IV ONE (02:27)
[2024-02-06] MEDS: DESMOPRESSIN ACETATE IV ONE (02:27)
[2024-02-06] MEDS: cefTRIAXone SODIUM 2,000 MG/50 ML BAG IV SCH (03:04)
[2024-02-06] MEDS ORDERED: ONDANSETRON INJ 2 MG/ML 2 ML VIAL IV PRN (03:15)
[2024-02-06] MEDS: NSS + 20MEQ KCL 20 MEQ/1,000 ML BAG IV SCH (03:21)
[2024-02-06 05:19] LABS: Basophils # (auto) 0.02 K/uL (0.00-0.20); Basophils % (auto) 0.2 %; Eosinophils # (auto) 0.06 K/uL (0.00-0.50); Eosinophils % (auto) 0.7 %; Hematocrit (blood only) 37.7 % (42.0-52.0); Hemoglobin 13.2 g/dl (14.0-18.0); Immature Granulocytes # (auto) 0.03 K/uL (0.01-0.20); Immature Granulocytes % (auto) 0.4 %; Lymphocytes % (auto) 22.1 %; Mean Corpuscular Hemoglobin 30.6 pg (25.0-34.0); Mean Corpuscular Volume 87.3 fL (80.0-100.0); Mean Platelet Volume 8.9 fL (9.4-12.4); Monocytes # (auto) 0.88 K/uL (0.11-0.59); Monocytes % (auto) 10.8 %; Neutrophils # (auto) 5.34 K/uL (1.40-6.50); Neutrophils % (auto) 65.8 %; Platelet Count 247 K/uL (130-400); RDW Coefficient of Variation 12.2 % (11.5-14.5); RDW Standard Deviation 39.3 fL (36.4-46.3); Red Blood Count 4.32 M/uL (4.70-6.10); White Blood Count 8.13 K/ul (4.8-10.8)
[2024-02-06 05:42] LABS: Amphetamines+Metham, Urine Neg (Neg); Barbiturates, Urine Neg (Neg); Benzodiazepine, Urine Neg (Neg); Cocaine, Urine Neg (Neg); Fentanyl, Urine Neg (Neg); MDMA (Ecstacy), Urine Neg (Neg); Marijuana, Urine Neg (Neg); Methadone, Urine Neg (Neg); Opiate, Urine Neg (Neg); Phencyclidine, Urine Neg (Neg)
[2024-02-06] MEDS: MAGNESIUM SULFATE / D5W 1 GM/100 ML BAG IV SCH (06:49)
[2024-02-06] MEDS: FOLIC ACID 1 MG in SYRINGE 9.8 ML IV SCH (09:32)
[2024-02-06] MEDS: THIAMINE HCL 100 MG in SYRINGE 9 ML IV SCH (09:33)
[2024-02-06 10:18] LABS: Hemoglobin 12.7 g/dl (14.0-18.0)
--- NOTE | 2024-02-06 10:22 | Gastrointestinal Consultation ---
Date of Consultation February 06, 2024 Assessment & Plan (1) Abdominal pain, epigastric: (2) Mucosal abnormality of duodenum: (3) Abnormal CT scan, gastrointestinal tract: Plan -Continue Protonix gtt -Ok to continue Octreotide as initiated in ED, however patient is hemodynamic ally stable and doesn't appear to have a profound GI bleed at the present time -Continue to monitor H/H -Keep NPO for EGD today Supervising Physician Co-Signing Physician Notes Gentleman examined at the bedside lying comfortably, abdomen somewhat tender in the right upper quadrant. No guarding rebound rigidity bowel sounds are present. CT scan shows inflammatory changes around the duodenum and thickening consistent with peptic ulcer disease. Elevated lipase could be from this or potentially penetrating ulcer with secondary pancreatitis. Does not clinically have symptoms of a walled off perforation. Proceed with EGD for evaluation. Risks of the procedure including bleeding and perforation addressed informed con sent obtained. Proceed the same day. Suspect ulceration is from adequate aspirin use and/or occasional naproxen use. Evaluate for H. pylori. Rule out neoplasia. History of Present Illness Reason for Consultation: duodenal ulcer with bleeding, pancreatitis Attending Physician: Betzaida Henriquez MD History of Present Illness Patient is a 53 yo male with PMH of HTN, smokeless tobacco use, & GERD. He notes that he has taken Prilosec 20 mg daily for many years and this has controlled his symptoms. He notes that he developed a severe upper abdominal pain after eating [place] food. The pain worsened to the point where he felt the urge to vomit. He was unable to tolerate food or drink after that. He takes Aspirin daily but rarely uses NSAIDs otherwise. He denies melena, hematemesis, or coffee ground emesis. He notes an issue of intermittent BRBPR for which he has had separate evaluations throughout this year. A Colonoscopy occurred in June 2023. No family history of stomach or esophageal cancer. No other complaints at present. In the ED he was noted to have an H/H of 12.7/36.0. A Lipase has been mildly elevated. Reviewed the CT scan directly with radiologist and questioned an abnormal area of the second portion of the duodenum representing likely ulcer and possible walled off perforation vs other issue. There is what is likely reactive pancreatic inflammation in the area. The patient is on a PPI drip at present. Allergies Allergy/AdvReac Type Severity Reaction Status Date / Time No Known Allergies Allergy Verified 11/20/23 08:48 Home Medications Medication Instructions Recorded Confirmed Type chlorthalidone 25 mg tablet 25 mg PO QAM #90 tabs 03/01/23 02/06/24 Rx atenolol 25 mg tablet 25 mg PO QPM 05/31/23 02/06/24 History omeprazole 20 mg capsule,delayed 20 mg PO QAM 05/31/23 02/06/24 History release amlodipine 10 mg-benazepril 20 mg 1 cap PO QAM #90 caps 06/23/23 02/06/24 Rx capsule atorvastatin 20 mg tablet 20 mg PO QPM #90 tabs 07/18/23 02/06/24 Rx potassium chloride 20 mEq 20 meq PO BID #180 tabs 01/08/24 02/06/24 Rx tablet,extended release aspirin 81 mg tablet,delayed 81 mg PO QAM 02/06/24 02/06/24 History release doxycycline monohydrate 100 mg 100 mg PO BID 02/06/24 02/06/24 History tablet Patient History Medical History History of colon polyps Hyponatremia Hearing loss getting hearing aides soon Acid reflux History of hypokalemia Hyperlipidemia Surgical History History of colonoscopy MULTIPLE S/P hernia repair HX Family History Father Colorectal cancer Brother Colorectal cancer Uncle Myocardial infarction Denies family history of Ovarian cancer Prostate cancer Breast cancer Social History Smoking Status: Never smoker Tobacco Type: Smokeless Tobacco (Dip or Chew) Age Started Using Tobacco: 16; packs per day: 1; Cigarettes Per Day: less than one can per day; Second Hand Exposure: No; Do You Dip or Chew Tobacco: No; Tobacco Cessation Education Requested by Patient: No Hx Alcohol Use: Yes Alcohol type: beer Alcohol Intake Frequency: 4 or More x per/Week Hx Substance Use: No Preferred Language: [place] Communication Ability: Effective Visual Impairment: No Limitations Hearing Ability: Normal Acoustic Engineer Required: No Beliefs That Will Affect Care: None marital status: Current Living Situation: Spouse current occupational status: employed current occupation: [employer]; [employer] Other Information That Helps Us Care for You: No Feels Safe at Home: Yes Safety Concerns: Feels Safe At This Time Childhood Exposure to Second-Hand Smoke: No Diet: regular caffeine: Yes Dental Care, Regularly: Yes Physical Activity Frequency: Daily Seatbelt Use: always Sunscreen Use: Yes Assistive Devices: None Review of Systems Constitutional: no fever and no chills Respiratory: no cough and no dyspnea Cardiovascular: no chest pain Gastrointestinal: no abdominal pain (improved since ED visit) Physical Exam Constitutional: well developed Respiratory: normal respiratory effort Gastrointestinal (Abdomen): normal bowel sounds, soft, nontender, no hepatosplenomegaly Psychiatric: Orientation: alert and oriented x 3 Results & Data Vital Signs (Past 12 Hours) Vital Signs Temp Pulse Pulse Resp BP BP Pulse Ox 02/06/24 09:17 82 14 133/83 95 02/06/24 07:13 79 02/06/24 05:32 77 22 97 02/06/24 05:30 117/69 02/06/24 05:02 86 19 98 02/06/24 04:30 140/88 02/06/24 04:27 88 23 02/06/24 04:09 82 19 02/06/24 04:00 124/82 02/06/24 03:33 87 20 02/06/24 03:32 02/06/24 03:30 125/76 02/06/24 03:30 84 17 125/76 97 02/06/24 03:24 37.2 C 85 21 123/83 97 02/06/24 03:15 88 17 123/83 97 02/06/24 03:03 86 20 97 02/06/24 03:00 123/83 02/06/24 02:53 85 02/06/24 02:30 165/106 H 02/06/24 02:27 74 17 94 02/06/24 02:03 84 18 95 02/06/24 02:00 139/85 02/06/24 01:06 80 14 93 02/06/24 01:00 150/91 H 02/06/24 00:33 84 16 95 02/06/24 00:30 158/85 H 02/06/24 00:06 87 13 97 02/05/24 23:30 166/92 H 02/05/24 23:27 97 H 17 97 02/05/24 23:00 88 10 L 170/86 H 95 02/05/24 22:51 91 H 12 96 02/05/24 22:49 101 H 02/05/24 22:48 102 H 17 181/117 H 97 02/05/24 22:47 181/117 H Pulse Ox O2 Del Method O2 Del Method O2 Flow Rate O2 Flow Rate 02/06/24 09:17 Nasal Cannula 2 02/06/24 07:13 02/06/24 05:32 Room Air 02/06/24 05:30 02/06/24 05:02 Room Air 02/06/24 04:30 02/06/24 04:27 02/06/24 04:09 02/06/24 04:00 02/06/24 03:33 02/06/24 03:32 97 Nasal Cannula 2 02/06/24 03:30 02/06/24 03:30 Nasal Cannula 2 02/06/24 03:24 Nasal Cannula 2 02/06/24 03:15 02/06/24 03:03 Nasal Cannula 2 02/06/24 03:00 02/06/24 02:53 02/06/24 02:30 02/06/24 02:27 Room Air 02/06/24 02:03 Room Air 02/06/24 02:00 02/06/24 01:06 Room Air 02/06/24 01:00 02/06/24 00:33 Room Air 02/06/24 00:30 02/06/24 00:06 Room Air 02/05/24 23:30 02/05/24 23:27 Room Air 02/05/24 23:00 Room Air 02/05/24 22:51 Room Air 02/05/24 22:49 02/05/24 22:48 Room Air 02/05/24 22:47 PG Care Time/CCT Total # of Minutes Spent Total Time Spent with Patient: Total time spent is greater than 50% in coordination of care (as documented) at patient's floor/unit and/or counseling patient: Coding Level of Care Code 62858 IN/OBS CONSULT LVL 4,60M Diagnoses Abdominal pain, epigastric R10.13 Mucosal abnormality of duodenum K31.[address] scan, gastrointestinal tract R93.3
[2024-02-06 11:24] LABS: Albumin Globulin Ratio 1.3 (0.9-2); Albumin Level 3.9 gm/dl (3.4-5.0); BUN Creatinine Ratio 8.5 (10-20); Bilirubin,Total 1.8 mg/dl (0.2-1.0); Creatinine Clr Calc Pharmacy 149.3 ml/min; Magnesium 1.8 mg/dl (1.7-2.4); Potassium 3.2 mmol/L (3.5-5.1); Total Protein 6.9 gm/dl (6.0-8.3)
--- NOTE | 2024-02-06 12:12 | History & Physical Bridge Note ---
Date of Service February 06, 2024 History & Physical Bridge Note I have examined the patient, reviewed the History & Physical and in the interval since the performance of the History & Physical I have noted the following changes of clinical significance: Patient reports ongoing mostly epigastric and mid abdominal pain for the last 2 days, but reports he has been having bloody stools off and on for several months. He was seen in the ER in August and then seen by GI nurse practitioner shortly after that and it was thought to be painless bleeding from hemorrhoids. He was advised to increase fiber in his diet and add supplemental fiber and use Preparation H. He denies any melena but mostly has had some darker clotted blood and some bright red blood. He drinks 5 beers per day and takes occasional NSAIDs. He does take aspirin on a daily basis for primary prevention. In the ER, he was placed on 2 LNC while he was sleeping due to low oxygen levels-review of primary care visit from 11/2023 shows that he was referred to sleep medicine for sleep study due to suspected CHALO. Vitals reviewed Gen: AAOx3, NAD HEENT: Anicteric sclerae, EOMI CV: RRR no mgr nl S1S2 Pulm: CTAB no wcr Abd: +BS soft positive exquisite TTP in the epigastric and RUQ regions with some voluntary guarding, no rebound, also with milder TTP in the left mid abdomen and LLQ, ND no masses or hernias Ext: No edema Skin: No rashes, warm/dry Neuro: Full strength throughout CBC, H&H, BMP, LFTs, magnesium, lipase reviewed 53-year-old male here with a history of alcohol use disorder, HTN, GERD, hyperlipidemia, and suspected CHALO, here with likely PUD, duodenitis, and associated acute pancreatitis. Ongoing rectal bleeding could be from upper GI bleed but he has been having intermittent rectal bleeding for 5 months now that may also be from internal hemorrhoids based on colonoscopy in 06/2023. -Continue to follow serial CBC, transfuse if hemodynamically unstable or hemoglobin less than 7 -Appreciate GI consultation-plan for EGD today, keep n.p.o., continue maintenance IV fluids -Continue Protonix drip -He was placed on octreotide drip although doubt he has variceal bleed and there is no history or evidence of portal hypertension or cirrhosis on imaging-will discontinue -On ceftriaxone possibly as prophylaxis if has variceal bleed-again likely does not need this for that reason -Continue AWSS scales and IV Ativan as needed although patient not high risk for withdrawal with no history of such -Replace potassium and magnesium due to hypokalemia and borderline low magnesium -Continue pain control-add on IV Dilaudid as needed
[2024-02-06] MEDS ORDERED: HYDROmorphone INJ 0.5 MG/0.5 ML SYR IV PRN (12:13)
[2024-02-06] MEDS: MAGNESIUM SULFATE / D5W 1 GM/100 ML BAG IV ONE (13:14)
[2024-02-06] MEDS: POTASSIUM CHLORIDE / WTR 10 MEQ/100 ML PLCT IV SCH (13:18)
--- NOTE | 2024-02-06 15:37 | Anesthesiology Consultation ---
Date of Service February 06, 2024 Assessment & Plan Chart Review Chart Review: Acceptable Risk for Surgery Consults Requested none ASA ASA3 Proposed Anesthesia Anesthesia Type: MAC History Surgery Operation Date: 02/06/24 16:30 Proposed Procedures p Esophagogastroduodenoscopy Dr. Grady Rasmussen MD Height/Weight Height: 6 ft 6 in Weight: 113.4 kg Allergies Allergy/AdvReac Type Severity Reaction Status Date / Time No Known Allergies Allergy Verified 11/20/23 08:48 Medications Home Medications Medication Instructions Recorded Confirmed Last Taken chlorthalidone 25 mg tablet 25 mg PO QAM #90 tabs 03/01/23 02/06/24 06/14/23 atenolol 25 mg tablet 25 mg PO QPM 05/31/23 02/06/24 06/13/23 omeprazole 20 mg capsule,delayed 20 mg PO QAM 05/31/23 02/06/24 06/14/23 release amlodipine 10 mg-benazepril 20 mg 1 cap PO QAM #90 caps 06/23/23 02/06/24 Unknown capsule atorvastatin 20 mg tablet 20 mg PO QPM #90 tabs 07/18/23 02/06/24 Unknown potassium chloride 20 mEq 20 meq PO BID #180 tabs 01/08/24 02/06/24 Unknown tablet,extended release aspirin 81 mg tablet,delayed 81 mg PO QAM 02/06/24 02/06/24 Unknown release doxycycline monohydrate 100 mg 100 mg PO BID 02/06/24 02/06/24 Unknown tablet Active Medications Generic Name Dose Route Start Last Admin Trade Name Freq PRN Reason Stop Dose Admin Pantoprazole Sodium 40 mg/ 100 mls @ 20 mls/hr 02/06/24 00:30 02/06/24 11:00 Dextrose IV 03/07/24 00:29 8 mg/hr Q5H RADHA 20 mls/hr Administration 8 MG/HR Potassium Chloride/Sodium Chloride 20 meq in 1,000 mls @ 80 mls/hr 02/06/24 02:00 02/06/24 03:21 Normal Saline W/20 Meq Kcl IV 02/07/24 02:59 80 mls/hr .[id number] RADHA Administration Thiamine HCl 100 mg/ Syringe 10 mls @ 2 mls/min 02/06/24 09:00 12/31/24 09:33 IV 03/07/24 08:59 2 mls/min QAM RADHA Administration Folic Acid 1 mg/ Syringe 10 mls @ 5 mls/min 02/06/24 09:00 02/06/24 09:32 IV 03/07/24 08:59 5 mls/min QAM RADHA Administration Lorazepam 1 mg 02/06/24 01:58 02/06/24 03:20 Lorazepam 2 Mg/1 Ml Vial IV 03/07/24 01:57 1 mg UD PRN Administration EtOH Withdrawal AWSS Score 6,7 Protocol Lorazepam 2 mg 02/06/24 01:58 02/06/24 02:24 Lorazepam 2 Mg/1 Ml Vial IV 03/07/24 01:57 2 mg UD PRN Administration EtOH Withdrawal AWSS Score 8,9 Protocol NPO Date Last Intake of Fluids: 02/05/24 Time Last Intake of Fluids: 19:00 Date Last Intake of Solids: 02/04/24 Time Last Intake of Solids: 14:30 Past Medical History Medical History History of colon polyps Hyponatremia Hearing loss getting hearing aides soon Acid reflux History of hypokalemia Hyperlipidemia Exercise / Class Metabolic Activity II 4-5 Yardwork/Stairs/Walk up hill Past Family History Family History Father Colorectal cancer Brother Colorectal cancer Uncle Myocardial infarction Denies family history of Ovarian cancer Prostate cancer Breast cancer Past Surgical History Surgical History History of colonoscopy MULTIPLE S/P hernia repair HX Past Anesthesia History No Hx of Anesthesia Complications History of PONV No Hx of PONV and No Hx of Motion Sickness Social History Smoking Status: Never smoker tobacco type: smokeless tobacco Smoking cigarettes per day: less than one can per day Do You Dip or Chew Tobacco: No Hx Alcohol Use: Yes Alcohol type: beer alcohol intake frequency: 3 or more drinks per day Hx Substance Use: No substance use type: does not use Review of Systems The patient is a 53-year-old male with a past medical history including hypertension, SNHL bilaterally, smokeless tobacco use, GERD without esophagitis, hypertension, hyperlipidemia, and daily alcohol use. He presents to the emergency department with symptoms as noted above. He does report a change in his stool pattern during this time, noting that his stools are venkat in color. #Gastric ulcer with GI bleed- CT scan abdomen pelvis notes thickened duodenum wall with surrounding free fluid. Presumed ulcer in the mid duodenum Physical Exam Vital Signs Last Vital Signs Temp 37.2 C 02/06/24 15:27 Pulse 72 02/06/24 15:27 Resp 18 02/06/24 15:27 BP 153/87 H 02/06/24 15:27 Pulse Ox 96 02/06/24 15:27 O2 Del Method Nasal Cannula 02/06/24 15:27 O2 Flow Rate 2 02/06/24 15:27 Constitutional no acute distress ENMT Thyromental Distance: > or= 3.5 Finger Breadths Mallampati Class: II teeth intact, upper front crown Neck normal visual inspection Respiratory normal respiratory effort Auscultation: lungs clear to auscultation bilaterally Cardiovascular Rate/Rhythm: regular rate Testing Laboratory Results 02/06/24 09:41 02/06/24 10:28 PT 11.0 Seconds (9.0-12.0) 02/05/24 20:57 INR 1.0 (0.9-1.1) 02/05/24 20:57 APTT 30 Seconds (21-31) 02/05/24 20:57 Urine Color Yellow 02/05/24 20:57 Urine Appearance Clear (Clear) 02/05/24 20:57 Urine pH 6.5 (4.5-7.5) 02/05/24 20:57 Ur Specific Harmony 1.006 (1.000-1.030) 02/05/24 20:57 Urine Protein Trace (Negative) H 02/05/24 20:57 Urine Glucose (UA) Negative (Negative) 02/05/24 20:57 Urine Ketones Negative (Negative) 02/05/24 20:57 Urine Nitrite Negative (Negative) 02/05/24 20:57 Ur Leukocyte Esterase Negative (Negative) 02/05/24 20:57 Urine WBC (Auto) 0-5 /hpf (0-5) 02/05/24 20:57 Urine RBC (Auto) 0-2 /hpf (0-2) 02/05/24 20:57 U Hyaline Cast (Auto) 0-2 /lpf (0-2) 02/05/24 20:57 U Epithel Cells (Auto) 0-2 /hpf (0-2) 02/05/24 20:57 Urine Bacteria (Auto) None Seen (None Seen) 02/05/24 20:57
--- NOTE | 2024-02-06 16:30 | GI REPORT ---
[facility] Patient: SABINA VILLAVICENCIO : 1970 Sex at : Male Age: 53 Years Procedure: Upper GI endoscopy Date: 02/06/2024 Attending Physician: Roger Rasmussen MD Referring MD: Betzaida Henriquez Md; Harjit Frias Indications: - Epigastric abdominal pain - CT scan suggesting large duodenal ulcer. Periduodenal fluid. Medications: - Monitored Anesthesia Care Complications: - No immediate complications. Estimated Blood Loss: - Estimated blood loss was minimal. Procedure: - The egd scope was introduced through the mouth and advanced to the third part of the duodenum. - The upper GI endoscopy was accomplished with ease. - The patient tolerated the procedure well. Findings: - The Z-line was irregular and was found 38 cm from the incisors. Biopsies were taken with a cold forceps for histology. Estimated blood loss was minimal. - Patchy mild inflammation characterized by erythema was found in the gastric antrum. Biopsies were taken with a cold forceps for Helicobacter pylori testing. Estimated blood loss was minimal. - The examined duodenum was normal. Impression: - Z-line irregular, 38 cm from the incisors. Biopsied. - Gastritis, characterized by erythema. Biopsied. - Normal examined duodenum. Recommendation: - Await pathology results. - Surprisingly normal duodenum. The duodenum is not extrinsically compressed either. Changes at this point would appear to be most likely secondary to pancreatitis. Continue PPI therapy Procedure Code(s): - 82513, Esophagogastroduodenoscopy, flexible, transoral; with biopsy, single or multiple Diagnosis Code(s): - R10.13, Epigastric pain - K22.89, Other specified disease of esophagus - K29.70, Gastritis, unspecified, without bleeding CPT(R) - 2023 copyright [employer]. All Rights Reserved. The CPT codes, CCI edits and ICD codes generated are intended as suggestions and were generated based on input data. These codes are preliminary and upon zig zag spring machine operator review may be revised to meet current compliance and payer requirements. The provider is responsible for the final determination of appropriate codes, and modifiers. Roger Rasmussen MD This document has been electronically signed. Note Initiated:02/06/2024 Note Completed:02/06/2024 4:30 PM \\[email or web address]\[email or web address]\Results\LIVE\[id number]
[2024-02-06] MEDS: ACETAMINOPHEN 325 MG TAB PO PRN (22:51)
--- NOTE | 2024-02-07 08:25 | Hospitalist Progress Note ---
Date of Service February 07, 2024 Assessment & Plan Plan The patient is a 53-year-old male with a past medical history including hypertension, SNHL bilaterally, smokeless tobacco use, GERD without esophagitis, hypertension, hyperlipidemia, and daily alcohol use. He presents to the emerg ency department with nausea / vomiting / abdominal pain. He also reported a change in his stool pattern during this time, noting that his stools are venkat in color. #Abdominal pain - CT scan abdomen pelvis notes thickened duodenum wall with surrounding free fluid. - Presumed ulcer in the mid duodenum - Aggravating factors including aspirin, doxycycline, potassium chloride, smokeless tobacco use, alcohol use - s/p DDAVP 45 mcg IV x 1 - EGD showing gastritis, z-like irregularities, normal duodenum - clear liquid diet - d/c ppi drip, octretotide drip, CTX - GI on board, recs appreciated - monitor Hgb closely, currently remains stable #BRBPR - possible hemorrhoidal bleeding (internal hemorrhoids noted on colonoscopy in 06/2023) - Hgb stable, monitor for now - outpatient follow up with GI #Acute pancreatitis - likely in the setting of alcohol use disorder - lipase 500 --> 347 on admission - pain control with prn IV dilaudid #Electrolyte disturbances - hypokalemia: replete and monitor - hypomagnesemia: replete and monitor - check phos #Alcohol use disorder- - Placed on AWSS protocol with IV Ativan - Thiamine 100 mg IV daily - Folic acid 1 mg IV daily - Alcohol level less than 10 - Urine drug screen negative Admission and Anticipated Discharge Date Admission Date: February 06, 2024 Results & Data Results & Data Vital Signs (Past 12 Hours) Vital Signs Temp Pulse Pulse Pulse Resp BP BP 02/07/24 07:49 36.8 C 63 16 129/82 02/07/24 03:15 02/07/24 01:50 37.0 C 75 18 122/71 02/07/24 00:43 67 02/06/24 23:16 36.7 C 75 16 151/86 H Pulse Ox Pulse Ox O2 Del Method O2 Del Method 02/07/24 07:49 94 Room Air 02/07/24 03:15 93 Room Air 02/07/24 01:50 93 Room Air 02/07/24 00:43 02/06/24 23:16 94 Room Air PG Care Time/CCT Total # of Minutes Spent Total Time Spent with Patient: Total time spent is greater than 50% in coordination of care (as documented) at patient's floor/unit and/or counseling patient: Coding
[2024-02-07 08:34] LABS: Basophils # (auto) 0.04 K/uL (0.00-0.20); Basophils % (auto) 0.5 %; Eosinophils # (auto) 0.21 K/uL (0.00-0.50); Eosinophils % (auto) 2.8 %; Hematocrit (blood only) 36.9 % (42.0-52.0); Hemoglobin 12.7 g/dl (14.0-18.0); Immature Granulocytes # (auto) 0.02 K/uL (0.01-0.20); Immature Granulocytes % (auto) 0.3 %; Lymphocytes # (auto) 1.91 K/uL (1.20-3.40); Lymphocytes % (auto) 25.7 %; Mean Corpuscular Hemoglobin 30.2 pg (25.0-34.0); Mean Corpuscular Hgb Conc 34.4 g/dL (32.0-36.0); Mean Corpuscular Volume 87.6 fL (80.0-100.0); Mean Platelet Volume 9.2 fL (9.4-12.4); Monocytes # (auto) 0.72 K/uL (0.11-0.59); Monocytes % (auto) 9.7 %; Neutrophils # (auto) 4.52 K/uL (1.40-6.50); Platelet Count 235 K/uL (130-400); RDW Standard Deviation 38.5 fL (36.4-46.3); Red Blood Count 4.21 M/uL (4.70-6.10); White Blood Count 7.42 K/ul (4.8-10.8)
[2024-02-07 08:58] LABS: Albumin Globulin Ratio 1.3 (0.9-2); Albumin Level 3.9 gm/dl (3.4-5.0); BUN Creatinine Ratio 6.8 (10-20); Bilirubin,Total 1.7 mg/dl (0.2-1.0); Calcium 8.9 mg/dl (8.6-10.3); Creatinine Clr Calc Pharmacy 163.8 ml/min; Magnesium 1.7 mg/dl (1.7-2.4); Total Protein 6.9 gm/dl (6.0-8.3)
[2024-02-07] MEDS: PROPOFOL IV EMULSION 10 MG/ML 20 ML VIAL IV ONE ×2 (09:17)
[2024-02-07] MEDS: LIDOCAINE 2% 2 ML VIAL/AMP(20MG/ML) INFIL ONE (09:17)
[2024-02-07] MEDS: PANTOprazole 40 MG TAB PO SCH (10:12)
--- NOTE | 2024-02-07 10:23 | Gastroenterology Progress Note ---
Date of Service February 07, 2024 Assessment & Plan (1) Abdominal pain, epigastric: Plan: I am okay with advancing diet. If he tolerates not much further reason to keep him. Admission and Anticipated Discharge Date Admission Date: February 06, 2024 Subjective He says his pain is down to a 1 out of 10 but it "still has its moments". Would like to try eating something. EGD unremarkable Physical Exam Physical Exam: He looks well Results & Data Vital Signs (Past 12 Hours) Vital Signs Temp Pulse Pulse Pulse Resp BP BP 02/07/24 08:00 81 02/07/24 07:49 36.8 C 63 16 129/82 02/07/24 03:15 02/07/24 01:50 37.0 C 75 18 122/71 02/07/24 00:43 67 02/06/24 23:16 36.7 C 75 16 151/86 H Pulse Ox Pulse Ox O2 Del Method O2 Del Method 02/07/24 08:00 02/07/24 07:49 94 Room Air 02/07/24 03:15 93 Room Air 02/07/24 01:50 93 Room Air 02/07/24 00:43 02/06/24 23:16 94 Room Air
[2024-02-07 15:08] VITALS: BP 148/77; PULSE 76; RESP 16; TEMP 98.6; O2SAT 96
--- NOTE | 2024-02-07 16:52 | Discharge Summary ---
Discharge Summary Date of Service February 07, 2024 Principal Dx & Hospital Course #1 = Principal Diagnosis (1) Alcohol use disorder: (2) GI bleed: (3) Smokeless tobacco use: (4) Gastritis: (5) Acute pancreatitis: Plan [employer] 45 mcg IV x 1 - EGD showing gastritis, z-like irregularities, normal duodenum - tolerated regular diet - d/c ppi drip, octretotide drip, CTX - GI on board, cleared patient for discharge - monitor Hgb closely, currently remains stable #BRBPR - possible hemorrhoidal bleeding (internal hemorrhoids noted on colonoscopy in 06/2023) - Hgb stable, monitor for now - outpatient follow up with GI #Acute pancreatitis - likely in the setting of alcohol use disorder - lipase 500 --> 347 --> 166 this admission - symptoms improved #Electrolyte disturbances - hypokalemia: replete and monitor - hypomagnesemia: replete and monitor #Alcohol use disorder- - Alcohol level less than 10 - Urine drug screen negative - counseled patient on alcohol cessation Dispo: d/c home 02/06: pt's at bedside Admission HPI Per Admitting Provider The patient is a 53-year-old male with a past medical history including hypertension, SNHL bilaterally, smokeless tobacco use, GERD without esophagitis, hypertension, hyperlipidemia, and daily alcohol use. He presents to the emergency department with symptoms as noted above. He does report a change in his stool pattern during this time, noting that his stools are venkat in color. Discharge Plan Discharge Items Patient Disposition: Home - Self-Care Reason For Visit: DUODENAL ULCER WITH BLEED, PANCREATITIS Discharge Diagnosis: Alcohol induced pancreatitis Activity: Resume your previous activity Non-emergency contact: Primary Care Provider Call non-emergency contact if: you have any medication questions, your symptoms worsen and your pain is not controlled Follow-up/Referrals: Harjit Frias DO [Primary Care Provider] - Diet: Regular Addtl Attending Provider Instructions: Recommend alcohol cessation. Pending Studies at Discharge: No Stand-Alone Forms: My [employer], Smoking Cessation Medications and DC Order Prescriptions: New pantoprazole 40 mg Tablet,Delayed Release (Dr/Ec) 40 mg PO BID Qty: 60 0RF Continued chlorthalidone 25 mg tablet 25 mg PO QAM Qty: 90 3RF amlodipine-benazepril 10-20 mg capsule 1 cap PO QAM Qty: 90 3RF Rx Instructions: TAKE 1 CAPSULE EVERY MORNING atorvastatin 20 mg tablet 20 mg PO QPM Qty: 90 3RF potassium chloride 20 mEq tablet extended release 20 meq PO BID Qty: 180 3RF atenolol 25 mg tablet 25 mg PO QPM aspirin [Aspirin Low-Strength] 81 mg Tablet,Delayed Release (Dr/Ec) 81 mg PO QAM Discontinued omeprazole 20 mg capsule,delayed release(DR/EC) 20 mg PO QAM Rx Instructions: TAKE 1 CAPSULE EVERY MORNING doxycycline monohydrate 100 mg tablet 100 mg PO BID Discharge Orders: Discharge Order (Routine); Ordered 02/07/24 Ordered By: Haley Moore Admission Data Admit Date/Time: 02/06/24 02:04 Attending Provider: Haley Moore Admit Provider: Trung Hayden Primary Care Provider: Harjit Frias Other Providers: Trung Hayden; Debby Gonsales Jr Hospital Stay Data Consultations 02/06/24 00:18 ED Decision to Admit Stat 02/06/24 03:15 Consult Gastroenterology Routine Procedures Performed Operation Date: 02/06/24 16:30 Actual Procedures p EGD Biopsy Cytology - Roger Rasmussen MD Diagnostic Imagining Performed 02/05/24 20:47 CT Abd and Pelvis [CT abd pelvis IV con only] Stat Pending Results Patient Have Any Pending Studies at Discharge: No Discharge Instructions Given to Patient (Per Discharging Provider) Recommend alcohol cessation. Total Time Total Time Spent Total Time Spent (In Minutes): 50 Coding Level of Care Code 71485 INP/OBS DISCH >30 MIN Diagnoses Alcohol use disorder F10.90 GI bleed K92.2 Smokeless tobacco use Z72.0 Gastritis K29.70 Acute pancreatitis K85.90
--- NOTE | 2024-02-08 12:30 | Electrocardiogram Report ---
Test Reason : Blood Pressure : */* mmHG Vent. Rate : 72 BPM Atrial Rate : 72 BPM P-R Int : 230 ms QRS Dur : 96 ms QT Int : 398 ms P-R-T Axes : 63 57 49 degrees QTcB Int : 435 ms Sinus rhythm with 1st degree A-V block Otherwise normal ECG When compared with ECG of 25-Oct-2021 20:07, No significant change was found Confirmed by Flash Zhou ([id number]) on 02/08/2024 12:30:21 PM Referred By: REFERRED SELF Confirmed By: Flash Zhou
== END 2024-02-07 17:50 | disposition home or self-care (01) | DRG 377 ==
LOC: ED 20:09 → SUATTDRO 02-06 02:04 → EDINP 02-06 02:04 → 2S 02-06 03:15